=== PATIENT | female | born 1950 | race Asian ===

== ENCOUNTER → 2016-11-23 | Outpatient (CLI) | payer OTHER ==
--- NOTE | ~2016-11-23 | MY29 ---
[facility] A Service of [facility] RADIOLOGY TEXT RESULTS PATIENT: ELOTN PARKER LOCATION: [facility] : 48 UNIT #: [id number] AGE: [address]: Sharona Moore MD SEX: F ORDER DR: [id number] [place], [place] [address] [id number] O MR#: [id number] Acc #: [id number] NAME: ELTON PARKER : 1950 SEX: F STUDY DATE/TIME: 11/23/2016 10:39 UNIT: [facility] ROOM: STUDY DESCRIPTION: MY ZULEYKA SCREENING W/ CAD BILAT Attending Physician: Sharona Moore M.D. Referring Physician: Sharona Moore M.D. Ordering Physician: Sharona Moore M.D. Primary Care Physician: Sharona Moore M.D. MEDICAL IMAGING REPORT This report is preliminary unless electronic signature is present EXAM Bilateral digital screening mammogram with CAD COMPARISON None. INDICATIONS Breast cancer screening. 66-year-old asymptomatic female. No personal or family history of breast cancer. FINDINGS The breasts are almost entirely fatty. There are minimal arterial calcifications in both breasts. There are no suspicious findings in either breast. IMPRESSION 1. No mammographic evidence of malignancy. Continued annual screen mammography and clinical breast exam are recommended. 2. Minimal arterial calcifications. Correlation for possible atherosclerotic disease elsewhere in the body is recommended. BIRADS: 2 Benign Finding. Patients over the age of 40 are entered into a reminder system with target due date for the next mammogram. A result letter will also be sent to the patient. Dictated by... Tian Jordan M.D. THIS IS AN ELECTRONICALLY VERIFIED REPORT [facility] A Service of [facility] RADIOLOGY TEXT RESULTS PATIENT: ELTON PARKER LOCATION: [facility] : 48 UNIT #: [id number] AGE: [address]: Sharona Moore MD SEX: F ORDER DR: Tian Jordan M.D. at 12/01/2016 1:30 AM BLM/pcl TD: 11/23/2016 20:16 JOB #: [id number] MEDICAL IMAGING REPORT Page 1 of 1 COPY
--- NOTE | ~2016-11-23 | BD1 ---
[facility] A Service of [facility] RADIOLOGY TEXT RESULTS PATIENT: ELTON PARKER LOCATION: [facility] : 48 UNIT #: [id number] AGE: [address]: Sharona Moore MD SEX: F ORDER DR: [id number] [facility] [address] [place], [place] [address] [id number] O MR#: [id number] Acc #: [id number] NAME: ELTON PARKER : 1950 SEX: F STUDY DATE/TIME: 11/23/2016 10:12 UNIT: [facility] ROOM: STUDY DESCRIPTION: BD Dexa Bone Dens 1+ Site Attending Physician: Sharona Moore M.D. Referring Physician: Sharona Moore M.D. Ordering Physician: Sharona Moore M.D. Primary Care Physician: Sharona Moore M.D. MEDICAL IMAGING REPORT This report is preliminary unless electronic signature is present EXAM DXA scan, 11/23/2016. HISTORY Status post menopause with no hormone replacement therapy. Osteopenia. FINDINGS Bone mineral density in the lumbar spine from L1-L4 was 0.805 g/cm2 which is 2.2 standard deviations below the mean when compared to the young adult reference population which is characteristic of osteopenia. This is 0.3 standard deviations below the mean when compared to the age-matched population. Bone mineral density in the left femoral neck was 0.554 g/cm2 which is 2.7 standard deviations below the mean when compared to the young adult reference population which is characteristic of osteoporosis. This is 1 standard deviation below the mean when compared to the age-matched population. IMPRESSION Bone mineral density in the lumbar spine characteristic of osteopenia and within the left hip characteristic of osteoporosis. Dictated by... Jean-Claude Garcia M.D. THIS IS AN ELECTRONICALLY VERIFIED REPORT Jean-Claude Garcia M.D. at 11/24/2016 7:17 AM MICHAEL/misti TD: 11/23/2016 16:28 [facility] A Service of [facility] RADIOLOGY TEXT RESULTS PATIENT: ELTON PARKER LOCATION: [facility] : 48 UNIT #: [id number] AGE: [address]: Sharona Moore MD SEX: F ORDER DR: JOB #: [id number] MEDICAL IMAGING REPORT Page 1 of 1 COPY
== END | disposition home or self-care (01) ==
LOC: CWCC 09:25
DX: Z12.31 Encounter for screening mammogram for malignant neoplasm of breast (principal); Z13.820 Encounter for screening for osteoporosis; Z78.0 Asymptomatic menopausal state
CPT/HCPCS: 77080; G0202